=== PATIENT | male | born 1990 | race Caucasian/White ===

== ENCOUNTER 2017-09-09 02:15 | Emergency (ER) | payer OTHER ==
[~2017-09-09] VITALS: Ht 180.3 cm; Wt 78.0 kg
[~2017-09-09 02:15] MED LIST: TYLE3 PO; Z.0.NO CURRENT MEDS
--- NOTE | 2017-09-09 02:31 | PD ---
HPI Chief Complaint: Psychiatric Symptoms Time Seen by Provider: 02:28 Travel History International Travel<30 days: No Contact w/Intl Traveler<30days: No Traveled to known affect area: No History of Present Illness HPI 27-year-old male with no significant medical history or psychiatric history, presents the emergency department under Welch act for psychiatric evaluation. Patient states that he was upset when he found out that his is allegedly having an affair. He contacted his sister. Shortly after police showed up at his house. Patient denies seeing anything regards to hurting himself or anybody else. Per report, the patient texted suicidal messages to his sister. Patient denies this. States he has consumed some alcohol this evening. He does not do this regularly. He has no other medical history to report at this time. [facility] Past Medical History Medical History: Denies Significant Hx Diminished Hearing: No Immunizations Current: No Social History Alcohol Use: Yes ([facility]) Tobacco Use: No Substance Use: No Allergies-Medications (Allergen,Severity, Reaction): Coded Allergies: No Known Allergies (Verified , 10/24/08) Reported Meds & Prescriptions Reported Meds & Active Scripts Active No Active Prescriptions or Reported Medications Review of Systems Except as stated in HPI: all other systems reviewed are Neg Physical Exam Narrative GENERAL: Well-nourished male patient, in no acute distress. SKIN: Focused skin assessment warm/dry. HEAD: Atraumatic. Normocephalic. EYES: Pupils equal and round. No scleral icterus. No injection or drainage. ENT: No nasal bleeding or discharge. Mucous membranes pink and moist. NECK: Trachea midline. No JVD. CARDIOVASCULAR: Regular rate and rhythm. No murmur appreciated. RESPIRATORY: No accessory muscle use. Clear to auscultation. Breath sounds equal bilaterally. GASTROINTESTINAL: Abdomen soft, non-tender, nondistended. Hepatic and splenic margins not palpable. MUSCULOSKELETAL: No obvious deformities. No clubbing. No cyanosis. No edema. NEUROLOGICAL: Awake and alert. No obvious cranial nerve deficits. Motor grossly within normal limits. Normal speech. Data Data Last Documented VS Vital Signs Date Time Temp Pulse Resp B/P (MAP) Pulse Ox O2 Delivery O2 Flow Rate FiO2 09/09/17 02:39 112 19 131/81 (98) 99 Room Air Orders Orders Complete Blood Count With Diff (09/09/17 02:28) Thyroid Stimulating Hormone (09/09/17 02:28) Basic Metabolic Panel (Bmp) (09/09/17 02:28) Psych Screen (09/09/17 02:28) Drug Screen, Random Urine (09/09/17 02:28) Alcohol (Ethanol) (09/09/17 02:28) Labs Laboratory Tests Test 09/09/17 02:30 White Blood Count 10.7 TH/MM3 Red Blood Count 5.23 MIL/MM3 Hemoglobin 16.2 GM/DL Hematocrit 45.5 % Mean Corpuscular Volume 87.0 FL Mean Corpuscular Hemoglobin 31.0 PG Mean Corpuscular Hemoglobin Concent 35.6 % Red Cell Distribution Width 13.6 % Platelet Count 276 TH/MM3 Mean Platelet Volume 9.1 FL Neutrophils (%) (Auto) 74.3 % Lymphocytes (%) (Auto) 17.4 % Monocytes (%) (Auto) 7.9 % Eosinophils (%) (Auto) 0.0 % Basophils (%) (Auto) 0.4 % Neutrophils # (Auto) 8.0 TH/MM3 Lymphocytes # (Auto) 1.9 TH/MM3 Monocytes # (Auto) 0.8 TH/MM3 Eosinophils # (Auto) 0.0 TH/MM3 Basophils # (Auto) 0.0 TH/MM3 CBC Comment DIFF FINAL Differential Comment Blood Urea Nitrogen 11 MG/DL Creatinine 1.01 MG/DL Random Glucose 100 MG/DL Calcium Level 9.3 MG/DL Sodium Level 141 MEQ/L Potassium Level 3.5 MEQ/L Chloride Level 106 MEQ/L Carbon Dioxide Level 25.9 MEQ/L Anion Gap 9 MEQ/L Estimat Glomerular Filtration Rate 89 ML/MIN Thyroid Stimulating Hormone 3rd Gen 1.410 uIU/ML Ethyl Alcohol Level LESS THAN 3 MG/DL MDM Medical Decision Making Medical Screen Exam Complete: Yes Emergency Medical Condition: Yes Medical Record Reviewed: Yes Differential Diagnosis Mood disorder versus personality disorder versus adjustment reaction disorder versus intoxication Narrative Course 27-year-old male presents to emergency department under Welch act for psychiatric evaluation. Patient appears without distress. He is calm and cooperative. Lab work is complete reviewed without acute concern. Patient is medically cleared to undergo psychiatric screening for further evaluation and disposition. Mental health screening discussed with the patient. Psychiatric screen ordered. Laboratory Tests Test 09/09/17 02:30 White Blood Count 10.7 TH/MM3 Red Blood Count 5.23 MIL/MM3 Hemoglobin 16.2 GM/DL Hematocrit 45.5 % Mean Corpuscular Volume 87.0 FL Mean Corpuscular Hemoglobin 31.0 PG Mean Corpuscular Hemoglobin Concent 35.6 % Red Cell Distribution Width 13.6 % Platelet Count 276 TH/MM3 Mean Platelet Volume 9.1 FL Neutrophils (%) (Auto) 74.3 % Lymphocytes (%) (Auto) 17.4 % Monocytes (%) (Auto) 7.9 % Eosinophils (%) (Auto) 0.0 % Basophils (%) (Auto) 0.4 % Neutrophils # (Auto) 8.0 TH/MM3 Lymphocytes # (Auto) 1.9 TH/MM3 Monocytes # (Auto) 0.8 TH/MM3 Eosinophils # (Auto) 0.0 TH/MM3 Basophils # (Auto) 0.0 TH/MM3 CBC Comment DIFF FINAL Differential Comment Blood Urea Nitrogen 11 MG/DL Creatinine 1.01 MG/DL Random Glucose 100 MG/DL Calcium Level 9.3 MG/DL Sodium Level 141 MEQ/L Potassium Level 3.5 MEQ/L Chloride Level 106 MEQ/L Carbon Dioxide Level 25.9 MEQ/L Anion Gap 9 MEQ/L Estimat Glomerular Filtration Rate 89 ML/MIN Thyroid Stimulating Hormone 3rd Gen 1.410 uIU/ML Ethyl Alcohol Level LESS THAN 3 MG/DL Diagnosis Primary Impression: Adjustment reaction Qualified Codes: F43.21 - Adjustment disorder with depressed mood Scripts No Active Prescriptions or Reported Meds Condition: Stable Opal Lanier Sep 09, 2017 02:31
[2017-09-09 02:39] VITALS: BP 131/81; PULSE 112; RESP 19; O2SAT 99
[2017-09-09 02:48] LABS: BASOPHIL % 0.4 % (0.0-2.0); HEMATOCRIT 45.5 % (39.0-51.0); HEMOGLOBIN 16.2 GM/DL (13.0-17.0); LYMPH % 17.4 % (9.0-44.0); LYMPHOCYTE # 1.9 TH/MM3 (1.0-4.8); MEAN CORPUSCULAR HGB CONC 35.6 % (32.0-36.0); MEAN PLATELET VOLUME 9.1 FL (7.0-11.0); MONO % 7.9 % (0.0-8.0); MONOCYTE # 0.8 TH/MM3 (0-0.9); NEUT % 74.3 % (16.0-70.0); PLATELET COUNT 276 TH/MM3 (150-450); RED BLOOD COUNT 5.23 MIL/MM3 (4.50-5.90); RED CELL DISTRIBUTION WIDTH 13.6 % (11.6-17.2); WHITE BLOOD COUNT 10.7 TH/MM3 (4.0-11.0)
[2017-09-09 03:09] LABS: BICARBONATE 25.9 MEQ/L (21.0-32.0); BLOOD UREA NITROGEN 11 MG/DL (7-18); CALCIUM 9.3 MG/DL (8.5-10.1); CHLORIDE 106 MEQ/L (98-107); CREATININE 1.01 MG/DL (0.60-1.30); GLOMERULAR FILTRATION RATE 89 ML/MIN (>89); GLUCOSE,RANDOM 100 MG/DL (74-106); SODIUM (NA) 141 MEQ/L (136-145)
[2017-09-09 09:18] VITALS: BP 137/78; PULSE 108; RESP 18; TEMP 98.8; O2SAT 100
--- NOTE | 2017-09-09 17:07 | PD ---
History of Present Illness Chief Complaint: Psychiatric Symptoms Time Seen by Provider: 16:45 Travel History International Travel<30 Days: No Contact w/Intl Traveler<30days: No Known affected area: No Legal Status Legal Status: Welch Act Welch Act Signed By: Mana Marroquin Welch Act Comment: Officer Junior Rice Savan[place]jose [id number], Law enforcement case # [id number] History of Present Illness: History of Present Illness HPI 27-year-old, single, male with no significant medical history or psychiatric history, presenting to the emergency department under Welch act initiated by law enforcement. The report alleges that he had communicated with his sister and sent some text messages indicating that he wanted to hurt himself. His sister called the police with her concerns. The patient did not harm himself in any way and was home when the police arrived. The patient was monitored in secure environment and presented no suicidality and no behavioral dysregulation. Electronic medical record is reviewed no previous contact with [facility] psychiatry Department. Labs were reviewed. Current toxicology is negative. Patient is seen in J pod. He is alert, oriented 4. Dressed in hospital gown and maintaining basic hygiene. His speech is clear, logical and goal directed. His affect is mood congruent, variable and appropriate with adequate amount of eye contact. His thoughts are clear and logical with no evidence of any hallucinations, no delusions and no paranoia. His mood is sad and anxious over being here. There is no suicidal or homicidal ideation, intent or plan. Attention and concentration are adequate. The patient does admit to feeling sad over a recent breakup with his and her moving away to [place] 1 month ago. He states that on the night that he was placed under the Welch act he got a call from 1 of her boyfriends telling him that they were together. He admits to having placed a call to his sister and telling her that he was feeling very sad but denies that he indicated that he wanted to harm himself. The patient reports that he is sleeping well and eating well. Telephone call to his parents at [phone]. Nissa . Mother has no concerns over his safety.He will be moving in with them today for emotional support.She has no concerns if he were to be discharged and will pick him up. [facility] Past Medical History Medical History: Denies Significant Hx Diminished Hearing: No Immunizations Current: No Psychiatric History Psychiatric History Hx Psychiatric Treatment: No previous psychiatric history as reported. No previous suicide attempts. No history of self-injurious behavior. History of Inpatient Treatment: No Guns or firearms in home: Yes (Guns are securely locked away.) Social History but male who has completed some college. He has been for 4 years. Has a 1-1/2-year-old son that is with his . 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 He had a job interview today. He will be moving in to his parents house if he is discharged today. Hx Alcohol Use: Yes (OCC) Hx Tobacco Use: No Hx Substance Use: Yes (last drank 09/08/17; pt states he had 1 drink) Substance Use Type: Alcohol (Only social drinking) Hx of Substance Use Treatment: No Family Psychiatric History Negative Allergies-Medications (Allergen,Severity, Reaction): Coded Allergies: No Known Allergies (Verified , 10/24/08) Reported Meds & Prescriptions Reported Meds & Active Scripts Active No Active Prescriptions or Reported Medications Review of Systems Psychiatric: COMPLAINS OF: Anxiety, DENIES: Confusion, Mood changes, Depression , Hallucinations, Agitation, Suicidal Ideation, Homicidal Ideation, Delusions Except as stated in HPI: all other systems reviewed are Neg Mental Status Examination Appearance: Appropriate Consciousness: Alert Orientation: x4 Motor Activity: Normal gait Speech: Unremarkable Language: Adequate Fund of Knowledge: Adequate Attention and Concentration: Adequate Memory: Unremarkable Mood: Appropriate Affect: Appropriate Thought Process & Associations: Intact, Logical, Goal directed Thought Content: Appropriate Hallucination Type: None Delusion Type: None Suicidal Ideation: No Suicidal Plan: No Suicidal Intention: No Homicidal Ideation: No Homicidal Plan: No Homicidal Intention: No Insight: Adequate Judgment: Adequate MDM Medical Decision Making Medical Record Reviewed: Yes Assessment/Plan 27-year-old, single, male with no significant medical history or psychiatric history, presenting to the emergency department under Welch act initiated by law enforcement. The report alleges that he had communicated with his sister and sent some text messages indicating that he wanted to hurt himself. His sister called the police with her concerns. The patient did not harm himself in any way and was home when the police arrived. The patient was monitored in secure environment and presented no suicidality and no behavioral dysregulation. The patient presents no evidence of unstable mental illness. He is cognitively intact. He does does admit to feeling sad over recent breakup. He is future oriented with adequate protective factors in place. He has supportive family members. The patient is provided psychoeducation and support. He agrees to return to the emergency room if any changes and this is as part of the general safety plan. BA is lifted. Psychiatrically clear for discharge. Orders Orders Complete Blood Count With Diff (09/09/17 02:28) Thyroid Stimulating Hormone (09/09/17 02:28) Basic Metabolic Panel (Bmp) (09/09/17 02:28) Psych Screen (09/09/17 02:28) Drug Screen, Random Urine (09/09/17 02:28) Alcohol (Ethanol) (09/09/17 02:28) Diet Regular Basic (09/09/17 Breakfast) Diet Regular Basic (09/09/17 Lunch) Results Vital Signs Date Time Temp Pulse Resp B/P (MAP) Pulse Ox O2 Delivery O2 Flow Rate FiO2 09/09/17 09:18 98.8 108 18 137/78 (97) 100 Room Air 09/09/17 02:39 112 19 131/81 (98) 99 Room Air Laboratory Tests Test 09/09/17 02:30 09/09/17 09:35 White Blood Count 10.7 Red Blood Count 5.23 Hemoglobin 16.2 Hematocrit 45.5 Mean Corpuscular Volume 87.0 Mean Corpuscular Hemoglobin 31.0 Mean Corpuscular Hemoglobin Concent 35.6 Red Cell Distribution Width 13.6 Platelet Count 276 Mean Platelet Volume 9.1 Neutrophils (%) (Auto) 74.3 Lymphocytes (%) (Auto) 17.4 Monocytes (%) (Auto) 7.9 Eosinophils (%) (Auto) 0.0 Basophils (%) (Auto) 0.4 Neutrophils # (Auto) 8.0 Lymphocytes # (Auto) 1.9 Monocytes # (Auto) 0.8 Eosinophils # (Auto) 0.0 Basophils # (Auto) 0.0 CBC Comment DIFF FINAL Differential Comment Blood Urea Nitrogen 11 Creatinine 1.01 Random Glucose 100 Calcium Level 9.3 Sodium Level 141 Potassium Level 3.5 Chloride Level 106 Carbon Dioxide Level 25.9 Anion Gap 9 Estimat Glomerular Filtration Rate 89 Thyroid Stimulating Hormone 3rd Gen 1.410 Ethyl Alcohol Level LESS THAN 3 Urine Opiates Screen NEG Urine Barbiturates Screen NEG Urine Amphetamines Screen NEG Urine Benzodiazepines Screen NEG Urine Cocaine Screen NEG Urine Cannabinoids Screen NEG Diagnosis Primary Impression: Adjustment reaction Psychiatrically Cleared: Yes Med/ Other Pt Specific Info: No Meds Exist/No RX given Prescriptions No Active Prescriptions or Reported Meds Disposition: 01 DISCHARGE HOME Condition: Stable Problem Qualifiers Primary Impression: Adjustment reaction Qualified Codes: F43.21 - Adjustment disorder with depressed mood Zohreh Garcia Sep 09, 2017 17:07
--- NOTE | 2017-09-09 18:12 | PD ---
Physical Exam Time Seen by Provider: 18:11 Neyda Bruner has evaluated patient, lifted the Welch act and cleared the patient for discharge. Data Data Last Documented VS Vital Signs Date Time Temp Pulse Resp B/P (MAP) Pulse Ox O2 Delivery O2 Flow Rate FiO2 09/09/17 09:18 98.8 108 18 137/78 (97) 100 Room Air Orders Orders Complete Blood Count With Diff (09/09/17 02:28) Thyroid Stimulating Hormone (09/09/17 02:28) Basic Metabolic Panel (Bmp) (09/09/17 02:28) Psych Screen (09/09/17 02:28) Drug Screen, Random Urine (09/09/17 02:28) Alcohol (Ethanol) (09/09/17 02:28) Diet Regular Basic (09/09/17 Breakfast) Diet Regular Basic (09/09/17 Lunch) Labs Laboratory Tests Test 09/09/17 02:30 09/09/17 09:35 White Blood Count 10.7 TH/MM3 Red Blood Count 5.23 MIL/MM3 Hemoglobin 16.2 GM/DL Hematocrit 45.5 % Mean Corpuscular Volume 87.0 FL Mean Corpuscular Hemoglobin 31.0 PG Mean Corpuscular Hemoglobin Concent 35.6 % Red Cell Distribution Width 13.6 % Platelet Count 276 TH/MM3 Mean Platelet Volume 9.1 FL Neutrophils (%) (Auto) 74.3 % Lymphocytes (%) (Auto) 17.4 % Monocytes (%) (Auto) 7.9 % Eosinophils (%) (Auto) 0.0 % Basophils (%) (Auto) 0.4 % Neutrophils # (Auto) 8.0 TH/MM3 Lymphocytes # (Auto) 1.9 TH/MM3 Monocytes # (Auto) 0.8 TH/MM3 Eosinophils # (Auto) 0.0 TH/MM3 Basophils # (Auto) 0.0 TH/MM3 CBC Comment DIFF FINAL Differential Comment Blood Urea Nitrogen 11 MG/DL Creatinine 1.01 MG/DL Random Glucose 100 MG/DL Calcium Level 9.3 MG/DL Sodium Level 141 MEQ/L Potassium Level 3.5 MEQ/L Chloride Level 106 MEQ/L Carbon Dioxide Level 25.9 MEQ/L Anion Gap 9 MEQ/L Estimat Glomerular Filtration Rate 89 ML/MIN Thyroid Stimulating Hormone 3rd Gen 1.410 uIU/ML Ethyl Alcohol Level LESS THAN 3 MG/DL Urine Opiates Screen NEG Urine Barbiturates Screen NEG Urine Amphetamines Screen NEG Urine Benzodiazepines Screen NEG Urine Cocaine Screen NEG Urine Cannabinoids Screen NEG MDM Supervised Visit with JOSÉ LUIS: No Narrative Course Zohreh has evaluated patient, lifted the Welch act and cleared the patient for discharge. Patient contracts safety. Denies suicidal or homicidal ideations. Patient will be provided community resource packet to [facility] for follow-up. Has friends and family for support. Patient was medically cleared by alternate provider prior to psych screening. Patient has been evaluated by psychiatry and and is now cleared for discharge. Diagnosis Primary Impression: Adjustment reaction Qualified Codes: F43.21 - Adjustment disorder with depressed mood Referrals: [facility] (Out patient) [facility] Primary Care Physician Psychiatrist Radha STEIN [facility] Patient Instructions: General Instructions, Mood Disorders (ED) Additional Instruction: Contract safety to your self and others Follow-up with psychiatry Follow-up with primary care provider Follow-up with Tony Villatoro Return to the emergency department immediately with worsening of symptoms Med/Other Pt SpecificInfo: No Change to Meds, No Meds Exist/No RX given Scripts No Active Prescriptions or Reported Meds Disposition: 01 DISCHARGE HOME Condition: Stable Sujata Stewart Sep 09, 2017 18:12
== END 2017-09-09 18:39 | disposition home or self-care (01) ==
LOC: NEPD 02:15 → NEPJ 18:39
DX: F43.21 Adjustment disorder with depressed mood (principal)
CPT/HCPCS: 80048; 80307; 84443; 85025; 99284